=== PATIENT | female | born 1995 | race African-American/Black ===

== ENCOUNTER 2022-04-03 10:47 | Emergency (ER) | payer MEDICAID ==
[~2022-04-03] VITALS: Ht 170.2 cm; Wt 88.0 kg
[2022-04-03 10:50] VITALS: BP 131/76
[2022-04-03] MEDS ORDERED: METHOCARBAMOL 500MG TABLET PO ONE (13:15)
[2022-04-03] MEDS ORDERED: HYDROCODONE/ACETAMINOPHEN 5/325MG TABLET PO ONE (13:15)
[2022-04-03] MEDS ORDERED: LIDO1ADH23 TP (17:13)
[2022-04-03] MEDS ORDERED: METH-773 MT (17:13)
[2022-04-03] MEDS ORDERED: NAPR-681 MT (17:13)
== END 2022-04-03 17:26 | disposition home or self-care (01) ==
LOC: ER 10:47
DX: S39.012A Strain of muscle, fascia and tendon of lower back, initial encounter (principal); Z98.890 Other specified postprocedural states; X58.XXXA Exposure to other specified factors, initial encounter; Y93.89 Activity, other specified; Y92.018 Other place in single-family (private) house as the place of occurrence of the external cause
CPT/HCPCS: 72100; 99283

== ENCOUNTER 2022-11-19 00:27 | Emergency (ER) | payer MEDICAID ==
[~2022-11-19] VITALS: Ht 172.7 cm; Wt 103.0 kg
[~2022-11-19 00:27] MED LIST: LIDO1ADH23 TP; METH-773 MT; NAPR-681 MT
[2022-11-19 00:34] VITALS: BP 117/80
[2022-11-19] MEDS ORDERED: TETANUS, DIPHTHERIA, PERTUSSIS VAC/PF 0.5ML (>10YR OLD) IM ONE (00:45)
[2022-11-19] MEDS ORDERED: LIDOCAINE HCL/PF 1% 10 MG/ML 5ML VIAL INFIL ONE (00:45)
[2022-11-19] MEDS ORDERED: BACITRACIN ZINC OINT UDPKT TOP ONE (00:45)
[2022-11-19] MEDS ORDERED: CEPHALEXIN 250MG CAPSULE PO ONE (02:00)
[2022-11-19] MEDS ORDERED: HYDROCODONE/ACETAMINOPHEN 5/325MG TABLET PO STA (02:37)
[2022-11-19] MEDS ORDERED: HYDR-4001 PO (03:00)
[2022-11-19] MEDS ORDERED: NAPR-681 PO (03:00)
[2022-11-19] MEDS ORDERED: CEPH500C2 PO (03:00)
== END 2022-11-19 03:20 | disposition left against medical advice (07) ==
LOC: ER 00:27
DX: S91.341A Puncture wound with foreign body, right foot, initial encounter (principal); W25.XXXA Contact with sharp glass, initial encounter; Y93.89 Activity, other specified; Y92.89 Other specified places as the place of occurrence of the external cause; Y99.8 Other external cause status; Z79.899 Other long term (current) drug therapy
CPT/HCPCS: 73630; 99283